=== PATIENT | female | born 1960 | race Caucasian/White ===

== ENCOUNTER → 2024-10-05 15:06 | Outpatient (REF) | payer OTHER, SELFPAY | LOC: HWWDC 15:06 | PROVIDERS: ATTENDING PHYSICIAN Obstetrics & Gynecology; FAMILY PHYSICIAN Family Medicine | DX: Z12.31 Encounter for screening mammogram for malignant neoplasm of breast (principal) | CPT/HCPCS: 77063; 77067 ==

== ENCOUNTER → 2024-11-13 19:42 | Outpatient (REF) | payer OTHER, SELFPAY | LOC: MRI 19:42 | PROVIDERS: ATTENDING PHYSICIAN Family Medicine | DX: D32.9 Benign neoplasm of meninges, unspecified (principal) | CPT/HCPCS: 70553; A9575 ==

== ENCOUNTER 2025-01-20 06:15 | Day surgery (SDC) | payer OTHER, SELFPAY ==
[2025-01-20 08:05] VITALS: BMI 30.9
[2025-01-20 08:06] VITALS: BP 129/72; BMI 30.9
[2025-01-20 09:40] VITALS: BP 112/73
[2025-01-20 10:00] VITALS: BP 115/76
[2025-01-20 10:15] VITALS: BP 118/67
== END 2025-01-20 10:55 | disposition home or self-care (01) ==
LOC: SDS 06:15
PROVIDERS: ATTENDING PHYSICIAN Internal Medicine Gastroenterology
DX: K29.70 Gastritis, unspecified, without bleeding (principal); K44.9 Diaphragmatic hernia without obstruction or gangrene; K31.89 Other diseases of stomach and duodenum; K31.7 Polyp of stomach and duodenum; K22.81 Esophageal polyp; R76.8 Other specified abnormal immunological findings in serum; R19.4 Change in bowel habit; Z79.01 Long term (current) use of anticoagulants
CPT/HCPCS: 43239; 88305; 88342